=== PATIENT | female | born 2005 | race Caucasian/White ===

== ENCOUNTER 2024-08-04 18:26 | Emergency (ER) | payer SELFPAY ==
[2024-08-04 18:27] VITALS: BP 129/73
[2024-08-04 18:34] VITALS: BP 129/73; BMI 29.2
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
[2024-08-04] MEDS: TYLENOL 1000 MG PO (20:02)
== END 2024-08-04 20:08 | disposition home or self-care (01) ==
LOC: EMR 18:26
PROVIDERS: EMERGENCY PHYSICIAN Student in an Organized Health Care Education/Training Program
DX: S40.812A Abrasion of left upper arm, initial encounter (principal); V89.2XXA Person injured in unspecified motor-vehicle accident, traffic, initial encounter; Y92.410 Unspecified street and highway as the place of occurrence of the external cause; K21.9 Gastro-esophageal reflux disease without esophagitis; F17.200 Nicotine dependence, unspecified, uncomplicated
CPT/HCPCS: 99282